=== PATIENT | male | born 1950 | race Caucasian/White ===

== ENCOUNTER → 2016-05-01 | Outpatient (CLI) | payer MEDICAID ==
[~2016-05-01] MED LIST: ASPIRINEC PO; B/P MED; LIPITOR PO; LIPITOR20 MG; LOPRESSOR; LOPRESSOR PO; LOW DOSE ASPIRI81 M1; VOLTAREN75 MG PO
--- NOTE | ~2016-05-01 | US6 ---
[facility] A Service of [facility] & [facility] RADIOLOGY TEXT RESULTS PATIENT: MEHDI RASHEED JR. LOCATION: [facility] : 54 UNIT #: [id number] AGE: [address]: Wanda Myles MD SEX: M ORDER DR: [id number] [facility] [address] [place], [place] [address] [id number] O MR#: [id number] Acc #: [id number] NAME: MEHDI RASHEED JR. : 1950 SEX: M STUDY DATE/TIME: 05/01/2016 7:07 UNIT: [facility] ROOM: STUDY DESCRIPTION: US Abdominal Limited Attending Physician: Wanda Myles M.D. Referring Physician: Wanda Myles M.D. Ordering Physician: Wanda Myles M.D. Primary Care Phys[facility] REPORT This report is preliminary unless electronic signature is present EXAM Right upper quadrant ultrasound, 05/01/2016 INDICATION 66-year-old male with right upper quadrant pain and nausea and vomiting for a month. Hypertension, hyperlipidemia. No prior abdominal surgery. Clinical concern for gallstones. TECHNIQUE Sonographic imaging of the right upper quadrant was performed. COMPARISON Correlation is made of prior ultrasound in 2005. FINDINGS Pancreas not well visualized or assessed. Portions of the liver were obscured by bowel gas in a limited sonographic window. Liver measures 16.1 cm long axis. No focal liver mass, ascites or intrahepatic ductal dilatation. The right kidney demonstrates cortical thinning and is nonobstructed. It measures 11.6 cm long axis. Probably benign cyst in the anterior midpole right kidney measures up to 1.5 cm. There are a few faint internal echoes within the probably benign cyst. There is no correlate on the prior study. The gallbladder demonstrates no evidence of cholelithiasis, wall thickening or pericholecystic fluid. No sonographic Tilley's sign was described by the technologist. Extrahepatic common bile duct is 7.0 mm in diameter, top normal for patient age. IMPRESSION 1. No evidence of cholelithiasis. 2. The extrahepatic common bile duct is top normal in diameter at 7.0 mm for patient age. [facility] A Service of [facility] RADIOLOGY TEXT RESULTS PATIENT: MEHDI RASHEED JR. LOCATION: [facility] : 54 UNIT #: [id number] AGE: [address]: Wanda Myles MD SEX: M ORDER DR: 3. Imaging features suggestive of chronic renal parenchymal disease. Probably benign minimally complicated cyst in the anterior midpole right kidney measures 1.5 cm. This can be reassessed on 6-12 month followup to document stability. 4. Pancreas not visualized or assessed. Dictated by... Alfred Quintero M.D. THIS IS AN ELECTRONICALLY VERIFIED REPORT Alfred Quintero M.D. at 05/01/2016 3:23 PM [place] TD: 05/01/2016 11:05 JOB #: [id number] MEDICAL IMAGING REPORT COPY
== END | disposition home or self-care (01) ==
LOC: CGUS 06:06
DX: R10.11 Right upper quadrant pain (principal); R93.3 Abnormal findings on diagnostic imaging of other parts of digestive tract
CPT/HCPCS: 76705

== ENCOUNTER 2016-09-01 15:47 | Emergency (ER) | payer MEDICAID ==
--- NOTE | ~2016-09-01 | CR72 ---
[facility]. [facility] A Service of [facility] & [facility] RADIOLOGY TEXT RESULTS PATIENT: MEHDI RASHEED JR. LOCATION: SED : 54 UNIT #: [id number] AGE: [address]: Diane Whitt MD SEX: M ORDER DR: [id number] [address] [address] [id number] E MR#: [id number] Acc #: [id number] NAME: MEHDI RASHEED JR. : 1950 SEX: M STUDY DATE/TIME: 09/01/2016 16:08 UNIT: SED ROOM: STUDY DESCRIPTION: CR Chest Single View Portable Attending Physician: Diane Whitt M.D. Ordering Physician: Diane Whitt M.D. Primary Care Physician: [facility]. MEDICAL IMAGING REPORT This report is preliminary unless electronic signature is present. EXAM Portable chest x-ray 09/01/2016. HISTORY Short of breath and cough. Short of air. Chest pain for 2 days. FINDINGS AP radiograph of the chest is presented. The heart is upper limits of normal in size to borderline enlarged. The lungs are well inflated. No acute pulmonary disease. No pleural effusion or pneumothorax and no suspicious nodule. Surgical chain sutures right upper and lower lung zones. No change from 03/27/2007. Please correlate with surgical history. No acute-appearing bony abnormality. Dictated by... Oneil Gomes M.D. THIS IS AN ELECTRONICALLY VERIFIED REPORT Oneil Gomes M.D. at 09/02/2016 6:49 PM [place] TD: 09/02/2016 10:20 JOB #: [id number] MEDICAL IMAGING REPORT Page 1 of 1
--- NOTE | ~2016-09-01 | EKG ---
PATIENT: MEHDI RASHEED UNIT #: [id number] Ventricular Rate: 71 BPM Atrial Rate: 71 BPM P-R Interval: 176 ms QRS Duration: 92 ms Q-T Interval: 394 ms QTC Calculation(Bezet): 428 ms P [place]: 21 degrees Calculated R [place]: 11 degrees Calculated T [place]: 36 degrees Diagnosis Line: Normal sinus rhythm Diagnosis Line: Normal ECG Diagnosis Line: No previous ECGs available Diagnosis Line: Confirmed by ALEX JIMENEZ MD ([id number]) on Diagnosis Line: 09/06/2016 9:00:50 AM INTERPRETING MD: TONY JAQUEZ
[2016-09-01 16:45] LABS: BASOPHIL% 0.2 % (0-2.5); EOSINOPHIL# 0.9 X10e3 (0-0.7); EOSINOPHIL% 10.4 % (0.0-7.0); HEMATOCRIT 43.3 % (38.0-50.0); LYMPHOCYTE# 1.5 X10e3 (1.0-3.5); LYMPHOCYTE% 17.7 % (17.0-45.0); MEAN CELL VOLUME 86.4 FL (83-96); MEAN CORPUSCULAR HEMOGLOBIN 29.9 PG (28-34); MEAN CORPUSCULAR HGB CONC 34.6 g/dL (30-36); MEAN PLATELET VOLUME 8.2 FL (6.5-11.5); MONOCYTE# 0.9 X10e3 (0-1.0); NEUTROPHIL% 60.7 % (40-75); PLATELET COUNT 261 X10e3 (140-420); RED BLOOD COUNT 5.01 X10e (3.90-5.60); RED CELL DISTRIBUTION WIDTH 14.1 % (11.0-15.5); WHITE BLOOD COUNT 8.3 X10e3 (4.0-10.5)
[2016-09-01 16:57] LABS: INR 1.1; PROTHROMBIN TIME (PATIENT) 11.9 SECONDS (9.5-12.4)
[2016-09-01 17:04] LABS: PARTIAL THROMBOPLASTIN TIME 28.1 SECONDS (25.6-38.1)
[2016-09-01 17:06] LABS: ALBUMIN SERUM 3.6 g/dL (3.5-5.0); ALKALINE PHOSPHATASE 112 U/L (32-92); ALT (SGPT) 22 U/L (10-40); AST (SGOT) 19 U/L (10-42); BILIRUBIN,TOTAL 0.6 mg/dL (0.2-2.0); BLOOD UREA NITROGEN 28 mg/dL (9-23); BUN/CREATININE RATIO 16.47; CALCIUM SERUM 8.4 mg/dL (8.4-10.2); CARBON DIOXIDE 24 mmol/L (22-31); CHLORIDE 111 mmol/L (100-111); CREATININE SERUM 1.7 mg/dL (0.6-1.4); DIFF IND NO; GLOM FILT RATE Estimated 41.7 mL/min (>60); GLUCOSE FASTING 117 mg/dL (70-110); MAGNESIUM 2.2 mg/dL (1.6-3.0); POTASSIUM 3.8 mmol/L (3.5-5.1); PROTEIN TOTAL SERUM 7.3 g/dL (6.0-8.3); SODIUM 140 mmol/L (135-145)
[2016-09-01 17:13] LABS: BILIRUBIN, DIRECT <0.1 mg/dL (0.0-0.2); BILIRUBIN,INDIRECT 0.5 mg/dL (0.0-0.9)
[2016-09-01 17:15] LABS: POC - CKMB <1.0 ng/mL (0.0-7.9); POC - TROPONIN <0.05 ng/mL (<=0.05)
[2016-09-01 18:29] LABS: POC - CKMB 1.1 ng/mL (0.0-7.9); POC - TROPONIN <0.05 ng/mL (<=0.05)
== END 2016-09-01 18:47 | disposition home or self-care (01) ==
LOC: SED 15:47
PROVIDERS: Student in an Organized Health Care Education/Training Program
DX: R05 Cough (principal); R74.8 Abnormal levels of other serum enzymes; E78.5 Hyperlipidemia, unspecified; I10 Essential (primary) hypertension
CPT/HCPCS: 36415; 71010; 80048; 80076; 82553; 83735; 83880; 84484; 85025; 85610; 85730; 93005; 99284